=== PATIENT | female | born 1960 | race Hispanic/Latino ===

== ENCOUNTER 2024-01-31 09:00 | Outpatient (RCR) | payer BC | END 2024-02-01 | LOC: PT 09:00 | PROVIDERS: ATTEND Podiatrist Foot & Ankle Surgery | DX: M76.62 Achilles tendinitis, left leg (principal); M62.81 Muscle weakness (generalized) ==

== ENCOUNTER 2024-02-14 11:44 | Outpatient (RCR) | payer BC | END 2024-03-02 | LOC: PT 11:44 | PROVIDERS: ATTEND Podiatrist Foot & Ankle Surgery | DX: M76.62 Achilles tendinitis, left leg (principal) ==